=== PATIENT | male | born 1965 | race Caucasian/White ===

== ENCOUNTER 2019-06-27 07:33 | Emergency (ER) | payer OTHER ==
[~2019-06-27] VITALS: Ht 162.6 cm; Wt 78.9 kg
[2019-06-27 07:43] VITALS: Ht 162.6 cm; Wt 78.9 kg
[2019-06-27 08:50] VITALS: BP 167/114
== END 2019-06-27 08:50 | disposition home or self-care (01) ==
LOC: ED 07:33
DX: S81.011A Laceration without foreign body, right knee, initial encounter (principal); W26.8XXA Contact with other sharp object(s), not elsewhere classified, initial encounter; Y93.89 Activity, other specified; Y92.89 Other specified places as the place of occurrence of the external cause; Y99.8 Other external cause status
CPT/HCPCS: 90715; J2001

== ENCOUNTER 2019-06-29 08:46 | Emergency (ER) | payer OTHER ==
[~2019-06-29] VITALS: Ht 162.6 cm; Wt 79.8 kg
[2019-06-29 08:54] VITALS: BP 140/93; Ht 162.6 cm; Wt 79.8 kg
== END 2019-06-29 09:34 | disposition home or self-care (01) ==
LOC: ED 08:46
DX: S81.011D Laceration without foreign body, right knee, subsequent encounter (principal); X58.XXXD Exposure to other specified factors, subsequent encounter
CPT/HCPCS: G0480